=== PATIENT | female | born 1960 | race Caucasian/White ===

== ENCOUNTER 2018-01-12 21:16 | Emergency (ER) | payer BC ==
[~2018-01-12] VITALS: Ht 157.5 cm; Wt 63.0 kg
[2018-01-12] MEDS ORDERED: ULTRAM50 MG PO (22:54)
[2018-01-12 23:34] VITALS: BP 139/86
== END 2018-01-12 23:37 | disposition home or self-care (01) ==
LOC: EME 21:16
DX: M54.5 Low back pain (principal); G89.29 Other chronic pain; I10 Essential (primary) hypertension; E78.5 Hyperlipidemia, unspecified; F17.200 Nicotine dependence, unspecified, uncomplicated; Z90.49 Acquired absence of other specified parts of digestive tract; Z88.5 Allergy status to narcotic agent
CPT/HCPCS: 99281; 99284